=== PATIENT | female | born 1955 | race Caucasian/White ===

== ENCOUNTER 2022-10-30 12:32 | Emergency (ER) | payer MEDICARE ==
[~2022-10-30] VITALS: Ht 160 cm; Wt 62.6 kg
[2022-10-30] MEDS ORDERED: TRANEXAMIC ACID 1,000 MG/10 ML VIAL ONE (12:35)
[2022-10-30] MEDS ORDERED: DILT-1 PO (12:46)
[2022-10-30] MEDS ORDERED: LIDOCAINE 4% TOPICAL 50 ML BOTTLE ONE (13:37)
[2022-10-30] MEDS ORDERED: LIDOCAINE 4% TOPICAL 50 ML BOTTLE TP ONE (13:45)
[2022-10-30] MEDS ORDERED: CEPH500T PO (13:58)
[2022-10-30] MEDS ORDERED: CEphaleXIN 500 MG CAPSULE PO ONE (14:00)
[2022-10-30] MEDS ORDERED: CEphaleXIN 500 MG CAPSULE ONE (14:01)
--- NOTE | 2022-10-30 14:07 | NUR ---
Patient is for discharge but nose bleeding started again. MD notified.
--- NOTE | 2022-10-30 14:16 | NUR ---
Nosebleeding stopped. Patient discharged to home by Dr Chris in stable condition with brisk steady gait. Written and verbal after care instructions given. Patient verbalized understanding and compliance of instructions. Stressed follow up with primary doctor and ENT specialist or return to ER for worsening s/s.
[2022-10-30 14:42] VITALS: BP 129/88
[2022-10-30] MEDS ORDERED: TRANEXAMIC ACID 1,000 MG/10 ML VIAL IR ONE (15:00)
== END 2022-10-30 14:42 | disposition home or self-care (01) ==
LOC: ER 12:34
DX: R04.0 Epistaxis (principal); Z79.899 Other long term (current) drug therapy
CPT/HCPCS: 30901; A4663